=== PATIENT | female | born 1955 | race African-American/Black ===

== ENCOUNTER → 2017-07-13 | Outpatient (CLI) | payer BC, OTHER ==
--- NOTE | 2017-07-13 16:58 | WOMENS IMAGING REPORT ---
EXAM DESCRIPTION: 3D SCREENING MAMMO BILAT COMPLETED DATE/TIME: 07/13/2017 9:09 am REASON FOR STUDY: ROUTINE SCREENING; Z12.31 Z12.31 ENCNTR SCREEN MAMMOGRAM FOR MALIGNANT NEOPLASM O F LEXY COMPARISON: 2015 TECHNIQUE: Standard craniocaudal and mediolateral oblique views of each breast recorded using digita l acquisition and breast tomosynthesis. LIMITATIONS: None. FINDINGS: No masses, calcifications or architectural distortion. No areas of suspicion. Read with the assistance of CAD. .[facility] - R2 Cenova Version 1.3 .[facility] Imaging - R2 Cenova Version 1.3 .[facility] Imaging - R2 Cenova Version 2.4 .[facility] [place] Cenova Version 2.4 .[facility] - R2 [employer] Machine Operator Version 9.2 IMPRESSION: NORMAL MAMMOGRAM. BIRADS 1. BREAST DENSITY: b. There are scattered areas of fibroglandular density. BIRAD: 1 NEGATIVE RECOMMENDATION: ROUTINE SCREENING COMMENT: The patient has been notified of the results by letter per MQSA requirements. Additional no tification policies are in place for contacting patient with suspicious or incomplete findings. Quality ID #[id number]: The [employer] recommends an annual screening mammogram for women aged 40 years or over. This facility utilizes a reminder system to ensure that all patients receive reminder letters, and/or direct phone calls for appointments. This includes reminders for routine scr eening mammograms, diagnostic mammograms, or other Breast Imaging Interventions when appropriate. Th is patient will be placed in the appropriate reminder system. The [employer] (ACR) has developed recommendations for screening MRI of the breast s in certain patient populations, to be used in conjunction with mammography. Breast MRI surveillanc e may be appropriate for women with more than 20% lifetime risk of developing breast cancer as deter mined by genetic testing, significant family history of the disease, or history of mantle radiation f or Hodgkins Disease. ACR Practice Guidelines 2008. DBT Technology DBT is a type of tomographic mammography. With conventional mammography, overlapping breast tissue ma y make lesions difficult to detect, even with good compression. DBT uses an x-ray tube that rotates a round the breast, taking images at different angles. These images are then combined to create thin sl ices of the breast that the radiologist can view as a 3D reconstruction. The [employer] unit can perform full-field digital mammograms (2D imaging); or DBT (3D imaging); or both, in a combination mode that quickly performs both the mammogram and the tomosynthesis scan while the breast is still compressed. PQRS 6045F: Fluoroscopic imaging is not utilized for breast tomosynthesis. TECHNICAL DOCUMENTATION: FINDING NUMBER: (1) ASSESSMENT: (1) JOB ID: [id number] [employer]- All Rights Reserved
== END ==
LOC: WI 08:12
PROVIDERS: ATTEND Internal Medicine Geriatric Medicine
DX: Z12.31 Encounter for screening mammogram for malignant neoplasm of breast (principal)
CPT/HCPCS: 77063; G0202; 77067

== ENCOUNTER 2017-07-18 13:15 | Inpatient (IN) | payer BC, OTHER ==
[2017-07-18] MEDS ORDERED: ASPIRIN 81 MG TABLET, CHEWABLE PO ONE (13:36)
--- NOTE | 2017-07-18 13:38 | ER Document Report ---
ED Medical Screen (RME) - General Chief Complaint: Chest Pain Stated Complaint: CHEST PAIN Time Seen by Provider: 07/18/17 13:35 Notes: Patient is a 62-year-old female who says that she was driving her car when she suddenly had anterior chest pain like cramping and pressure. It happened about 30 minutes prior to arrival here. The pain went up into her left jaw. She had some difficulty breathing with the pain. Then, as she arrived here, the pain subsided and is no longer present. Patient has had this problem several times in the past, just not quite as severe. She was seen by a wrap checker about a year ago and told that she may have some fluid around her heart. No nausea or vomiting. Did not develop any sweats. Did feel hot. At this time, again, patient says that she feels fine. Patient just started on a new cholesterol pill about 3 days ago. Also takes medicines for hypertension. TRAVEL OUTSIDE OF THE [place] IN LAST 30 DAYS: No - Related Data Allergies/Adverse Reactions: codeine [Codeine] Allergy (Verified 06/06/15 18:36) nifedipine [From Procardia] Allergy (Verified 06/06/15 18:36) Past Medical History - Social History Chew tobacco use (# tins/day): No Frequency of alcohol use: None Drug Abuse: None - Past Medical History Cardiac Medical History: Reports: Hx Hypertension Renal/ Medical History: Denies: Hx Peritoneal Dialysis Past Surgical History: Reports: Hx Abdominal Surgery - stomach bypass, Hx Gynecologic Surgery - hysterectomy - Immunizations Hx Diphtheria, Pertussis, Tetanus Vaccination: Yes Physical Exam - Vital signs Vitals: Temp Pulse Resp BP Pulse Ox 97.7 F 66 16 139/72 H 98 07/18/17 13:27 07/18/17 13:27 07/18/17 13:27 07/18/17 13:27 07/18/17 13:27 Course - Vital Signs Vital signs: Temp Pulse Resp BP Pulse Ox 97.7 F 66 16 139/72 H 98 07/18/17 13:27 07/18/17 13:27 07/18/17 13:27 07/18/17 13:27 07/18/17 13:27
[2017-07-18 14:04] LABS: ABSOLUTE EOSINOPHILS # (AUTO) 0.1 10^3/uL (0.0-0.6); ABSOLUTE LYMPHOCYTES (AUTO) 1.4 10^3/uL (0.5-4.7); ABSOLUTE MONOCYTES (AUTO) 0.4 10^3/uL (0.1-1.4); ABSOLUTE NEUT (AUTO) 2.9 10^3/uL (1.7-8.2); BASOPHILS % (AUTO) 0.7 % (0-2); EOSINOPHILS % (AUTO) 1.8 % (0-6); HEMATOCRIT 41.3 % (36.0-47.0); HEMOGLOBIN 13.9 g/dL (12.0-15.5); LYMPHOCYTES % (AUTO) 28.7 % (13-45); MEAN CORPUSCULAR HEMOGLOBIN 28.1 pg (27.0-33.4); MEAN CORPUSCULAR HGB CONC 33.7 g/dL (32.0-36.0); MEAN CORPUSCULAR VOLUME 84 fl (80-97); MONOCYTES % (AUTO) 8.5 % (3-13); PLATELET COUNT 235 10^3/uL (150-450); RED BLOOD COUNT 4.94 10^6/uL (3.72-5.28); RED CELL DISTRIBUTION WIDTH 14.3 % (11.5-14.0); SEGMENTED NEUTROPHILS % (AUTO) 60.3 % (42-78); TOTAL CELLS COUNTED % (AUTO) 100 %; WHITE BLOOD COUNT 4.8 10^3/uL (4.0-10.5)
--- NOTE | 2017-07-18 14:04 | RADIOLOGY REPORT (SQ) ---
EXAM DESCRIPTION: CHEST PA/LAT COMPLETED DATE/TIME: 07/18/2017 1:55 pm REASON FOR STUDY: Anterior chest pain COMPARISON: 04/14/2015 EXAM PARAMETERS: NUMBER OF VIEWS: two views TECHNIQUE: Digital Frontal and Lateral radiographic views of the chest acquired. RADIATION DOSE: NA LIMITATIONS: none FINDINGS: LUNGS AND PLEURA: No opacities, masses or pneumothorax. No pleural effusion. MEDIASTINUM AND HILAR STRUCTURES: No masses or contour abnormalities. HEART AND VASCULAR STRUCTURES: Heart stable in size. No evidence for failure. BONES: No acute findings. HARDWARE: None in the chest. OTHER: No other significant finding. IMPRESSION: NO ACUTE CARDIOPULMONARY PROCESS. NO SIGNIFICANT CHANGE FROM PRIOR STUDY. TECHNICAL DOCUMENTATION: JOB ID: [id number] [employer]- All Rights Reserved
[2017-07-18 14:15] LABS: ALANINE AMINOTRANSFERASE 45 U/L (9-52); ALBUMIN 4.1 g/dL (3.5-5.0); ALKALINE PHOSPHATASE 157 U/L (38-126); ANION GAP 12 (5-19); ASPARTATE AMINO TRANSFERASE 31 U/L (14-36); BILIRUBIN,DIRECT 0.2 mg/dL (0.0-0.4); BILIRUBIN,TOTAL 0.4 mg/dL (0.2-1.3); BLOOD UREA NITROGEN 15 mg/dL (7-20); CALCIUM 9.9 mg/dL (8.4-10.2); CARBON DIOXIDE 25 mmol/L (22-30); CHLORIDE 107 mmol/L (98-107); CREATINE KINASE 75 U/L (30-135); GLUCOSE 89 mg/dL (75-110); LIPASE 146.8 U/L (23-300); POTASSIUM 3.9 mmol/L (3.6-5.0); SODIUM 143.6 mmol/L (137-145); TOTAL PROTEIN 7.2 g/dL (6.3-8.2)
[2017-07-18 14:26] LABS: CREATINE KINASE MB 0.89 ng/mL (<4.55)
[2017-07-18 14:27] LABS: TROPONIN I < 0.012 ng/mL
--- NOTE | 2017-07-18 15:09 | ER Document Report ---
ED General - General Chief Complaint: Chest Pain Stated Complaint: CHEST PAIN Time Seen by Provider: 07/18/17 13:35 Mode of Arrival: Ambulatory Information source: Patient Notes: 62-year-old female history of hypertension hyperlipidemia who presents with complaints of chest pain radiating to the left neck just prior to arrival. Patient notes the pain was a pressure sensation lasting approximately 5 minutes. Patient's pain resolved upon arrival to the emergency department. Patient notes similar episode in the past, she does note that she has had a stress test last year which was within normal limits but an echo that showed pericardial effusion. Patient has she was followed with cardiology and no intervention was necessary. TRAVEL OUTSIDE OF THE [place] IN LAST 30 DAYS: No - HPI Onset: Just prior to arrival Onset/Duration: Sudden, Gone Quality of pain: Pressure Severity: Mild Pain Level: 1 Associated symptoms: Chest pain Exacerbated by: Denies Relieved by: Denies Similar symptoms previously: Yes Recently seen / treated by doctor: Yes - Related Data Allergies/Adverse Reactions: codeine [Codeine] Allergy (Verified 06/06/15 18:36) nifedipine [From Procardia] Allergy (Verified 06/06/15 18:36) Home Medications: Current Home Medications Amlodipine Besylate [Norvasc 10 mg Tablet] 10 mg PO DAILY 07/18/17 [History] Cyclobenzaprine HCl [Flexeril 10 mg Tablet] 10 mg PO PRN PRN 07/18/17 [History] Rosuvastatin Calcium [Crestor] 10 mg PO DAILY 07/18/17 [History] Spironolactone [Aldactone 25 mg Tablet] 25 mg PO DAILY 07/18/17 [History] Past Medical History - Social History Smoking Status: Never Smoker Cigarette use (# per day): No Chew tobacco use (# tins/day): No Smoking Education Provided: No Frequency of alcohol use: None Drug Abuse: None Family History: Reviewed & Not Pertinent Patient has suicidal ideation: No Patient has homicidal ideation: No - Past Medical History Cardiac Medical History: Reports: Hx Hypercholesterolemia, Hx Hypertension Renal/ Medical History: Denies: Hx Peritoneal Dialysis Past Surgical History: Reports: Hx Abdominal Surgery - gastric bypass, Hx Gynecologic Surgery - hysterectomy, Hx Hysterectomy - Immunizations Hx Diphtheria, Pertussis, Tetanus Vaccination: Yes Review of Systems - Review of Systems Notes: REVIEW OF SYSTEMS: CONSTITUTIONAL : Denies fever, chills, or sweats. Denies recent illness. EENT: Denies eye, ear, throat, or mouth pain or symptoms. Denies nasal or sinus congestion or discharge. Denies throat, tongue, or mouth swelling or difficulty swallowing. CARDIOVASCULAR: Admits chest pain RESPIRATORY: Denies cough, cold, or chest congestion. Denies shortness of breath, difficulty breathing, or wheezing. GASTROINTESTINAL: Denies abdominal pain or distention. Denies nausea, vomiting , or diarrhea. Denies blood in vomitus, stools, or per rectum. Denies black, tarry stools. Denies constipation. GENITOURINARY: Denies difficulty urinating, painful urination, burning, frequency, blood in urine, or discharge. FEMALE GENITOURINARY: Denies vaginal bleeding, heavy or abnormal periods, irregular periods. Denies vaginal discharge or odor. MUSCULOSKELETAL: Denies back or neck pain or stiffness. Denies joint pain or swelling. SKIN: Denies rash, lesions or sores. HEMATOLOGIC : Denies easy bruising or bleeding. LYMPHATIC: Denies swollen, enlarged glands. NEUROLOGICAL: Denies confusion or altered mental status. Denies passing out or loss of consciousness. Denies dizziness or lightheadedness. Denies headache. Denies weakness or paralysis or loss of use of either side. Denies problems with gait or speech. Denies sensory loss, numbness, or tingling. Denies seizures. PSYCHIATRIC: Denies anxiety or stress. Denies depression, suicidal ideation, or homicidal ideation. ALL OTHER SYSTEMS REVIEWED AND NEGATIVE. PHYSICAL EXAMINATION: GENERAL: Well-appearing, well-nourished and in no acute distress. HEAD: Atraumatic, normocephalic. EYES: Pupils equal round and reactive to light, extraocular movements intact, conjunctiva are normal. ENT: Nares patent, oropharynx clear without exudates. Moist mucous membranes. NECK: Normal range of motion, supple without lymphadenopathy LUNGS: Breath sounds clear to auscultation bilaterally and equal. No wheezes rales or rhonchi. HEART: Regular rate and rhythm without murmurs ABDOMEN: Soft, nontender, nondistended abdomen. No guarding, no rebound. No masses appreciated. Female : deferred Musculoskeletal: Normal range of motion, no pitting or edema. No cyanosis. NEUROLOGICAL: Cranial nerves grossly intact. Normal speech, normal gait. Normal sensory, motor exams PSYCH: Normal mood, normal affect. SKIN: Warm, Dry, normal turgor, no rashes or lesions noted. Dictation was performed using [employer] voice recognition software Physical Exam - Vital signs Vitals: Temp Pulse Resp BP Pulse Ox 97.7 F 66 16 139/72 H 98 07/18/17 13:27 07/18/17 13:27 07/18/17 13:27 07/18/17 13:27 07/18/17 13:27 Course - Re-evaluation Re-evalutation: 07/18/17 15:52 Patient's presentation is consistent with acute cardiac issue given her complaints and extensive medical history. Given that she is chest pain-free cardiac enzymes are negative and EKG appears normal I do believe she is stable to be ruled out in the hospital. Patient will be given aspirin - Vital Signs Vital signs: Temp Pulse Resp BP Pulse Ox 97.7 F 66 20 144/81 H 100 07/18/17 13:27 07/18/17 14:00 07/18/17 14:16 07/18/17 14:16 07/18/17 14:16 - Laboratory Result Diagrams: 07/18/17 13:45 07/18/17 13:45 Laboratory results interpreted by me: 07/18/17 07/18/17 13:45 13:45 RDW 14.3 H Alkaline Phosphatase 157 H - Diagnostic Test Radiology reviewed: Image reviewed, Reports reviewed - EKG Interpretation by Al EKG shows normal: Sinus rhythm, Johnson, Intervals, QRS Complexes Discharge - Discharge Clinical Impression: Chest pain Qualifiers: Chest pain type: unspecified Qualified Code(s): R07.9 - Chest pain, unspecified HTN (hypertension) Qualifiers: Hypertension type: essential hypertension Qualified Code(s): I10 - Essential ( primary) hypertension Hyperlipemia Qualifiers: Hyperlipidemia type: unspecified Qualified Code(s): E78.5 - Hyperlipidemia, unspecified Condition: Stable Disposition: ADMITTED OBSERVATION Admitting Provider: Rachel Unit Admitted: Telemetry
--- NOTE | 2017-07-18 18:12 | EKG REPORT ---
SEVERITY:- BORDERLINE ECG - SINUS RHYTHM PROBABLE LEFT ATRIAL ABNORMALITY BORDERLINE T ABNORMALITIES, INFERIOR LEADS : Confirmed by: Rafi Waters MD 18-Jul-2017 18:12:26
[2017-07-18 19:50] LABS: CREATINE KINASE MB 0.66 ng/mL (<4.55)
[2017-07-18 20:02] LABS: TROPONIN I < 0.012 ng/mL
[2017-07-19 02:04] LABS: CREATINE KINASE MB 0.53 ng/mL (<4.55)
[2017-07-19 02:08] LABS: TROPONIN I < 0.012 ng/mL
[2017-07-19 10:12] LABS: CREATINE KINASE MB 0.73 ng/mL (<4.55)
[2017-07-19 10:13] LABS: TROPONIN I < 0.012 ng/mL
[2017-07-19] MEDS ORDERED: CYCLOBENZAPRINE HCL 10 MG TABLET PO PRN (11:55)
[2017-07-19 12:05] VITALS: BP 110/55
--- NOTE | 2017-07-19 12:19 | PDOC H&P ---
History of Present Illness Admission Date/PCP: 07/18/17 15:43 NORMA JAMILA History of Present Illness: DENIZ DE JESUS is a 62 year old female, she came to the emergency room for evaluation of chest pain, the chest pain is atypical in character it was not provoked by activity and relieved by rest she had chest pain while she was driving her car, when she arrived to the emergency room there was no more chest pain sensation. In the emergency room she was evaluated, a 12-lead EKG was done , it was sinus rhythm, there is no acute ST segment changes. She had a Cardiolite stress test last year, it was negative for any acute ischemia. She was admitted for observation based on the recommendation of the ED physician. 3 sets of cardiac enzymes were negative for any acute myocardial infarction. She was observed for 23 hours, she had no chest pain throughout hospital stay. Past Medical History Cardiac Medical History: Reports: Hyperlipidema, Hypertension Past Surgical History Past Surgical History: Reports: Hysterectomy Social History Smoking Status: Never Smoker Cigarettes Packs Per Day: 0 Cigars Per Day: 0 Pipes Per Day: 0 Frequency of Alcohol Use: None Hx Recreational Drug Use: No Hx Prescription Drug Abuse: No - Advance Directive Resuscitation Status: Full Code Family History Family History: Reviewed & Not Pertinent Parental Family History Reviewed: Yes Children Family History Reviewed: Yes Sibling(s) Family History Reviewed.: Yes Medication/Allergy Home Medications: RX: Amlodipine Besylate [Norvasc 10 mg Tablet] 10 mg PO DAILY 07/18/17 RX: Cyclobenzaprine HCl [Flexeril 10 mg Tablet] 10 mg PO PRN PRN 07/18/17 RX: Rosuvastatin Calcium [Crestor] 10 mg PO DAILY 07/18/17 RX: Spironolactone [Aldactone 25 mg Tablet] 25 mg PO DAILY 07/18/17 RX: Aspirin 81 mg PO DAILY #90 07/19/17 Allergies/Adverse Reactions: codeine [Codeine] Allergy (Verified 07/18/17 17:10) nifedipine [From Procardia] Allergy (Verified 07/18/17 17:10) Review of Systems Constitutional: ABSENT: chills, fever(s), headache(s), weight gain, weight loss Eyes: ABSENT: visual disturbances Ears: ABSENT: hearing changes Cardiovascular: PRESENT: chest pain Respiratory: ABSENT: cough, hemoptysis Gastrointestinal: ABSENT: abdominal pain, constipation, diarrhea, hematemesis, hematochezia, nausea, vomiting Genitourinary: ABSENT: dysuria, hematuria Musculoskeletal: ABSENT: joint swelling Integumentary: ABSENT: rash, wounds Neurological: ABSENT: abnormal gait, abnormal speech, confusion, dizziness, focal weakness, syncope Psychiatric: ABSENT: anxiety, depression, homidical ideation, suicidal ideation Endocrine: ABSENT: cold intolerance, heat intolerance, menstrual abnormalities, polydipsia, polyuria Hematologic/Lymphatic: ABSENT: easy bleeding, easy bruising, lymphadenopathy Physical Exam Vital Signs: Temp Pulse Resp BP Pulse Ox 98.4 F 65 18 110/55 L 96 07/19/17 11:50 07/19/17 11:50 07/19/17 11:50 07/19/17 11:50 07/19/17 11:50 Intake & Output 07/18/17 07/19/17 07/20/17 06:59 06:59 06:59 Intake Total 610 Balance 610 Weight 93.5 kg General appearance: PRESENT: no acute distress, well-developed, well-nourished Head exam: PRESENT: atraumatic, normocephalic Eye exam: PRESENT: conjunctiva pink, EOMI, PERRLA Ear exam: PRESENT: normal external ear exam Mouth exam: PRESENT: moist, tongue midline Neck exam: PRESENT: full ROM Respiratory exam: PRESENT: clear to auscultation janene Cardiovascular exam: PRESENT: RRR, +S1, +S2 Pulses: PRESENT: normal dorsalis pedis pul, +2 pedal pulses bilateral Vascular exam: PRESENT: normal capillary refill GI/Abdominal exam: PRESENT: normal bowel sounds, soft Rectal exam: PRESENT: deferred Neurological exam: PRESENT: alert, awake, oriented to person, oriented to place , oriented to time, oriented to situation, CN II-XII grossly intact Psychiatric exam: PRESENT: appropriate affect, normal mood Skin exam: PRESENT: dry, intact, warm Results Laboratory Results: 07/18/17 07/18/17 07/19/17 18:18 18:18 01:19 Creatine Kinase 72 61 CK-MB (CK-2) 0.66 Troponin I < 0.012 07/19/17 07/19/17 07/19/17 01:19 09:34 09:34 Creatine Kinase 68 CK-MB (CK-2) 0.53 0.73 Troponin I < 0.012 < 0.012 Impressions: Chest X-Ray 07/18/17 13:36 IMPRESSION: NO ACUTE CARDIOPULMONARY PROCESS. NO SIGNIFICANT CHANGE FROM PRIOR STUDY. Assessment & Plan - Diagnosis (1) Chest pain Qualifiers: Chest pain type: unspecified Qualified Code(s): R07.9 - Chest pain, unspecified Is this a current diagnosis for this admission?: Yes Plan: She is admitted for observation to rule out acute myocardial acute infarction, though unlikely in this patient (2) HTN (hypertension) Qualifiers: Hypertension type: essential hypertension Qualified Code(s): I10 - Essential (primary) hypertension Is this a current diagnosis for this admission?: Yes (3) Hyperlipemia Qualifiers: Hyperlipidemia type: unspecified Qualified Code(s): E78.5 - Hyperlipidemia , unspecified Is this a current diagnosis for this admission?: Yes
[2017-07-19] MEDS ORDERED: SPIRONOLACTONE 25 MG TABLET PO ONE ×2 (12:30→13:00)
[2017-07-19] MEDS ORDERED: ATORVASTATIN CALCIUM 20 MG TABLET PO SCH (22:00)
[2017-07-20] MEDS ORDERED: AMLODIPINE BESYLATE 10 MG TABLET PO SCH (10:00)
[2017-07-20] MEDS ORDERED: SPIRONOLACTONE 25 MG TABLET PO SCH (10:00)
== END 2017-07-19 13:10 | disposition home or self-care (01) | DRG 313 ==
LOC: ER 13:15 → OBSVTOIN 15:43 → EH 15:43 → 4S 16:25
PROVIDERS: ADMIT Internal Medicine Geriatric Medicine; ATTEND Internal Medicine Geriatric Medicine
DX: R07.89 Other chest pain (principal); I10 Essential (primary) hypertension; E78.5 Hyperlipidemia, unspecified; R06.00 Dyspnea, unspecified; Z79.899 Other long term (current) drug therapy; Z98.84 Bariatric surgery status; Z90.710 Acquired absence of both cervix and uterus; Z88.6 Allergy status to analgesic agent; Z79.82 Long term (current) use of aspirin; Z88.8 Allergy status to other drugs, medicaments and biological substances
CPT/HCPCS: 36415; 71020; 80053; 82550; 82553; 83690; 84484; 85025; 93005; 93010; 99285; G0378

== ENCOUNTER → 2017-11-12 | Outpatient (CLI) | payer BC, OTHER ==
--- NOTE | 2017-11-12 19:41 | XCELERA REPORT ---
[address] [address] Transthoracic Echocardiogram Report Name: DENIZ DE JESUS Age: 62 yrs Gender: Female : 1955 Patient Status: Outpatient Patient Location: Study Date: 11/12/2017 01:18 PM Height: 63 in Weight: 200 lb BSA: 1.9 m2 Procedure: A complete two-dimensional transthoracic echocardiogram was performed (2D, M-mode, spectral and color flow Doppler). The study was technically adequate with some images being suboptimal in quality. Reason For Study: CARDIOMEGALY Ordering Physician: NORMA MARINO Performed By: Dagoberto Payne Interpretation Summary The left ventricular ejection fraction is normal. There is mild concentric left ventricular hypertrophy. The left ventricle is grossly normal size. Doppler measurements suggest pseudonormalized left ventricular relaxation, which is associated with grade II/IV or mild to moderate diastolic dysfunction Wall motion cannot be accurately commented on, but no definite regional wall motion abnormalities noted. The right ventricular systolic function is normal. The left atrial size is normal. The right atrium is normal. There is a trace amount of mitral regurgitation There is no mitral valve stenosis. No aortic regurgitation is present. There is no aortic valve stenosis There is a trace or physiologic amount of tricuspid regurgitation Tricuspid regurgitation jet envelope not well defined to measure RV systolic pressure accurately. The aortic root is not well visualized but is probably normal size. The inferior vena cava appeared normal and decreased > 50% with respiration (RAP 5-10 mmHg) Small pericardial effusion. There are no echocardiographic or Doppler indications for cardiac tamponade MMode/2D Measurements & Calculations RVDd: 3.3 cm LVIDd: 3.1 cm FS: 44.8 % Ao root diam: 2.3 cm IVSd: 1.3 cm LVIDs: 1.7 cm EDV(Teich): 39.0 ml LVPWd: 1.2 cm ESV(Teich): 8.8 ml Ao root area: 4.2 cm2 EF(Teich): 77.4 % LA dimension: 3.6 cm Doppler Measurements & Calculations MV E max jenifer: MV P1/2t max jenifer: Ao V2 max: LV V1 max P.1 cm/sec 73.1 cm/sec 169.4 cm/sec 4.9 mmHg MV A max jenifer: MV P1/2t: 81.5 msec Ao max PG: LV V1 max: 121.9 cm/sec 11.5 mmHg 110.6 cm/sec MV E/A: 0.58 MVA(P1/2t): 2.7 cm2 MV dec slope: 262.4 cm/sec2 PA V2 max: TR max jenifer: 85.4 cm/sec 247.0 cm/sec PA max P.9 mmHgTR max P.4 mmHg Left Ventricle The left ventricle is grossly normal size. There is mild concentric left ventricular hypertrophy. The left ventricular ejection fraction is normal. Doppler measurements suggest pseudonormalized left ventricular relaxation, which is associated with grade II/IV or mild to moderate diastolic dysfunction. Wall motion cannot be accurately commented on, but no definite regional wall motion abnormalities noted. Right Ventricle The right ventricle is grossly normal size. There is normal right ventricular wall thickness. The right ventricular systolic function is normal. Atria The right atrium is normal. The left atrial size is normal. Interarterial septum not well visualized and not well dopplered. Cannot comment on ASD/PFO presence. Mitral Valve The mitral valve is grossly normal. There is no mitral valve stenosis. There is a trace amount of mitral regurgitation. Aortic Valve The aortic valve is not well visualized secondary to technical limitations. There is no aortic valve stenosis. No aortic regurgitation is present. Tricuspid Valve The tricuspid valve is not well visualized secondary to technical limitations. There is no tricuspid stenosis. There is a trace or physiologic amount of tricuspid regurgitation. Tricuspid regurgitation jet envelope not well defined to measure RV systolic pressure accurately. Pulmonic Valve The pulmonic valve is not well visualized. Great Vessels The aortic root is not well visualized but is probably normal size. The inferior vena cava appeared normal and decreased > 50% with respiration (RAP 5-10 mmHg). Effusions Small pericardial effusion. There are no echocardiographic or Doppler indications for cardiac tamponade. : NORMA MARINO > Ying Carter
== END ==
LOC: SP 12:40
PROVIDERS: ATTEND Internal Medicine Geriatric Medicine
DX: I51.7 Cardiomegaly (principal)
CPT/HCPCS: 93306

== ENCOUNTER 2018-03-25 20:26 | Emergency (ER) | payer BC, OTHER ==
--- NOTE | 2018-03-25 21:19 | ER Document Report ---
ED Medical Screen (RME) - General Chief Complaint: Headache Stated Complaint: HEADACHE Time Seen by Provider: 03/25/18 21:17 Mode of Arrival: Ambulatory Information source: Patient Notes: Patient is a 62-year-old female who presents with chief complaint of headache. Patient reports that she has been having a dull headaches since Thursday. Patient reports this morning she woke up with a severe headache. Patient went to her primary care provider's office and was prescribed Fioricet. Patient went home took the Fioricet and went to sleep and woke up with worsening pain. Patient reports the pain is located on the left side of her head, feels like a sharp stabbing burning pain and is intermittent. Patient denies any nausea, vomiting, light sensitivity or noise sensitivity. Patient does report that her blood pressures have been running high with systolic pressures in the 170s-190s over the last few weeks, she reports that her primary care provider is in the process of changing her on her blood pressure medications. Exam: Patient alert, oriented, calm and cooperative. 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 Normal motor and sensation to bilateral upper and lower extremities. I have greeted and performed a rapid initial assessment of this patient. A comprehensive ED assessment and evaluation of the patient, analysis of test results and completion of the medical decision making process will be conducted by additional ED providers. Dictation of this chart was performed using voice recognition software; therefore, there may be some unintended grammatical errors. TRAVEL OUTSIDE OF THE [place] IN LAST 30 DAYS: No - Related Data Allergies/Adverse Reactions: codeine [Codeine] Allergy (Verified 07/18/17 17:10) nifedipine [From Procardia] Allergy (Verified 07/18/17 17:10) Past Medical History - Past Medical History Cardiac Medical History: Reports: Hx Hypercholesterolemia, Hx Hypertension Renal/ Medical History: Denies: Hx Peritoneal Dialysis Past Surgical History: Reports: Hx Abdominal Surgery - gastric bypass, Hx Gynecologic Surgery - hysterectomy, Hx Hysterectomy - Immunizations Hx Diphtheria, Pertussis, Tetanus Vaccination: Yes History of Influenza Vaccine for 04/2017 - 09/2017 Season: Refused Physical Exam - Vital signs Vitals: Temp Pulse Resp BP Pulse Ox 98.7 F 71 18 177/78 H 97 03/25/18 20:32 03/25/18 20:32 03/25/18 20:32 03/25/18 20:32 03/25/18 20:32 Course - Vital Signs Vital signs: Temp Pulse Resp BP Pulse Ox 98.7 F 71 18 177/78 H 97 03/25/18 20:32 03/25/18 20:36 03/25/18 20:36 03/25/18 20:36 03/25/18 20:36 Doctor's Discharge - Discharge Referrals: NORMA MARINO MD [Primary Care Provider] - Follow up as needed
--- NOTE | 2018-03-25 21:59 | RADIOLOGY REPORT (SQ) ---
EXAM DESCRIPTION: CT HEAD WITHOUT COMPLETED DATE/TIME: 03/25/2018 9:50 pm REASON FOR STUDY: worsening headache COMPARISON: None. TECHNIQUE: Axial images acquired through the brain without intravenous contrast. Images reviewed wi th bone, brain and subdural windows. Additional sagittal and coronal reconstructions were generated. Images stored on PACS. All CT scanners at this facility use dose modulation, iterative reconstruction, and/or weight based d osing when appropriate to reduce radiation dose to as low as reasonably achievable (ALARA). [facility]: Dose Right [facility]: CareDose [facility]: Dose Right [facility]: Teradose 4D [facility]: MediaPhy RADIATION DOSE: CT Rad equipment meets quality standard of care and radiation dose reduction techniq ues were employed. CTDIvol: 53.2 mGy. DLP: 911 mGy-cm. mGy. LIMITATIONS: None. FINDINGS: VENTRICLES: Normal size and contour. CEREBRUM: No masses. No hemorrhage. No midline shift. No evidence for acute infarction. Normal gra y/white matter differentiation. No areas of low density in the white matter. CEREBELLUM: No masses. No hemorrhage. No alteration of density. No evidence for acute infarction. EXTRAAXIAL SPACES: No fluid collections. No masses. ORBITS AND GLOBE: No intra- or extraconal masses. Normal contour of globe without masses. CALVARIUM: No fracture. PARANASAL SINUSES: No fluid or mucosal thickening. SOFT TISSUES: No mass or hematoma. OTHER: No other significant finding. IMPRESSION: NORMAL BRAIN CT WITHOUT CONTRAST. EVIDENCE OF ACUTE STROKE: NO. COMMENT: Quality ID # [id number]: Final reports with documentation of one or more dose reduction techniques (e.g., Automated exposure control, adjustment of the mA and/or kV according to patient size, use of iterative reconstruction technique) TECHNICAL DOCUMENTATION: JOB ID: [id number] [email or web address]- All Rights Reserved Reading location - IP/workstation name: [email or web address]
[2018-03-25] MEDS ORDERED: DEXAMETHASONE SOD PHOS INJ 10 MG/1 ML VIAL IV ONE (23:55)
[2018-03-25] MEDS ORDERED: NORMAL SALINE 1000 ML 1,000 ML IV ONE (23:55)
[2018-03-25] MEDS ORDERED: PROCHLORPERAZINE EDISYLATE INJ 10 MG/2 ML VIAL IV ONE (23:55)
[2018-03-25] MEDS ORDERED: KETOROLAC TROMETHAMINE INJ/PF 30 MG/1 ML SDV IV ONE (23:55)
--- NOTE | 2018-03-26 00:40 | ER Document Report ---
ED General - General Chief Complaint: Headache Stated Complaint: HEADACHE Time Seen by Provider: 03/25/18 21:17 Mode of Arrival: Ambulatory Notes: She is a 62-year-old female with a past medical history of essential hypertension, obesity, hyperlipidemia who presents with a headache. Patient describes this as a stabbing, throbbing pain to the left temporal aspect of her scalp and one specific spot approximately the diameter of her fingertip. She states that this area becomes exquisitely painful, the pain lasts for approximately 10 seconds and then goes away completely without any residual pain. She states that the pain was present when she woke up from sleep today. She notes that it persisted throughout the day gradually worsening until she went to go see her doctor around 1 PM. She states that he prescribed Fioricet which she took but it did not provide significant relief prompting her to come to the emergency department. She has at this point she has no symptoms. She states that when the pain comes it is a very severe, stabbing pain to the affected area but then completely dissipates. Nothing seems to trigger the pain and it does resolve on its own. She denies any focal weakness, numbness, nausea, diaphoresis, visual symptoms, eye pain, chest pain or shortness of breath. She denies any history of similar symptoms in the past. Denies any trauma to the area. TRAVEL OUTSIDE OF THE [place] IN LAST 30 DAYS: No - Related Data Allergies/Adverse Reactions: codeine [Codeine] Allergy (Verified 07/18/17 17:10) nifedipine [From Procardia] Allergy (Verified 07/18/17 17:10) Past Medical History - General Information source: Patient - Social History Smoking Status: Never Smoker Frequency of alcohol use: None Drug Abuse: None Lives with: Spouse/Significant other Family History: Reviewed & Not Pertinent Patient has suicidal ideation: No Patient has homicidal ideation: No - Past Medical History Cardiac Medical History: Reports: Hx Hypercholesterolemia, Hx Hypertension Renal/ Medical History: Denies: Hx Peritoneal Dialysis Past Surgical History: Reports: Hx Abdominal Surgery - gastric bypass, Hx Gynecologic Surgery - hysterectomy, Hx Hysterectomy - Immunizations Hx Diphtheria, Pertussis, Tetanus Vaccination: Yes Review of Systems - Review of Systems Notes: Constitutional: Negative for fever. HENT: Negative for sore throat. Eyes: Negative for visual changes. Cardiovascular: Negative for chest pain. Respiratory: Negative for shortness of breath. Gastrointestinal: Negative for abdominal pain, vomiting or diarrhea. Genitourinary: Negative for dysuria. Musculoskeletal: Negative for back pain. Skin: Negative for rash. Neurological: Positive for headache 10 point ROS negative except as marked above and in HPI. Physical Exam - Vital signs Vitals: Temp Pulse Resp BP Pulse Ox 98.7 F 71 18 177/78 H 97 03/25/18 20:32 03/25/18 20:32 03/25/18 20:32 03/25/18 20:32 03/25/18 20:32 Interpretation: Hypertensive Notes: PHYSICAL EXAMINATION: GENERAL: Well-appearing, well-nourished and in no acute distress. HEAD: Atraumatic, normocephalic. EYES: Pupils equal round and reactive to light, extraocular movements intact, sclera anicteric, conjunctiva are normal. ENT: nares patent, oropharynx clear without exudates. Moist mucous membranes. NECK: Normal range of motion, supple without lymphadenopathy LUNGS: Breath sounds clear to auscultation bilaterally and equal. No wheezes rales or rhonchi. HEART: Regular rate and rhythm without murmurs ABDOMEN: Soft, nontender, normoactive bowel sounds. No guarding, no rebound. No masses appreciated. EXTREMITIES: Normal range of motion, no pitting or edema. No cyanosis. NEUROLOGICAL: Face symmetric. Tongue protrudes midline. Extraocular motions intact. Pupils are 2 mm and equally reactive. Normal speech, normal gait. 5 out of 5 strength in both the distal and proximal upper and lower extremities bilaterally. Sensation is grossly intact throughout. Finger to nose testing normal. Pronator drift normal. PSYCH: Normal mood, normal affect. SKIN: Warm, Dry, normal turgor, no rashes or lesions noted. Course - Re-evaluation Re-evalutation: 03/26/18 00:35 Patient presents with an atypical headache, pulsing intermittent to a focal spot of her left temporal scalp but no findings to the area of the skull. The patient has no pain in between these brief episodes of what she describes as shocking, pulsating pain to the left temporal scalp. This is highly atypical in terms of headache characterization for any life-threatening pathology particularly subarachnoid hemorrhage, meningitis, encephalitis, acute stroke. CT the head unremarkable. The only diagnosis that would be dangerous in etiology that I can think of in this context to be temporal arteritis. Will send inflammatory markers and reassess. Otherwise I am uncertain of the exact etiology of this headache and have explained this to the patient. However based on her clinical characterization, normal neuro exam, reassuring history do not clinically suspect a subarachnoid hemorrhage, intracranial mass, or dural venous sinus thrombosis. 03/26/18 02:29 ESR is normal further lowering my suspicion for temporal arteritis. Patient no longer having any symptoms. I have emphasized diagnostic uncertainty with the patient and the need for a low threshold to return to the ED for any new or worsening symptoms. At this time will discharge with return precautions and follow-up recommendations. Verbal discharge instructions given a the bedside and opportunity for questions given. Medication warnings reviewed. Patient is in agreement with this plan and has verbalized understanding of return precautions and the need for primary care follow-up in the next 24-72 hours. - Vital Signs Vital signs: Temp Pulse Resp BP Pulse Ox 98.7 F 64 18 186/87 H 97 03/25/18 20:32 03/25/18 22:50 03/25/18 22:50 03/25/18 22:50 03/25/18 22:50 - Laboratory Result Diagrams: 03/26/18 00:57 03/26/18 02:02 Laboratory results interpreted by me: 03/26/18 03/26/18 00:57 02:02 RBC 5.37 H RDW 14.5 H Potassium 3.5 L Chloride 112 H - Diagnostic Test Radiology reviewed: Image reviewed, Reports reviewed Radiology results interpreted by me: 03/26/18 02:31 CT head: No masses or bleeds Discharge - Discharge Clinical Impression: Headache Qualifiers: Headache type: unspecified Headache chronicity pattern: acute headache Intractability: not intractable Qualified Code(s): R51 - Headache HTN (hypertension) Qualifiers: Hypertension type: unspecified Qualified Code(s): I10 - Essential (primary) hypertension Condition: Good Disposition: HOME, SELF-CARE Additional Instructions: You have been seen in the Emergency Department (ED) for a headache. Please use Tylenol (acetaminophen) or Motrin (ibuprofen) as needed for symptoms, but only as written on the box. As we have discussed, please follow up with your primary care doctor as soon as possible regarding today's ED visit and your headache symptoms. The exact cause of your symptoms today is uncertain, but your imaging and labs are otherwise normal. Call your doctor or return to the ED if you have a worsening headache, sudden and severe headache, confusion, slurred speech, facial droop, weakness or numbness in any arm or leg, extreme fatigue, or other symptoms that concern you. Referrals: NORMA MARINO MD [Primary Care Provider] - Follow up as needed
[2018-03-26 01:10] LABS: ABSOLUTE EOSINOPHILS # (AUTO) 0.1 10^3/uL (0.0-0.6); ABSOLUTE LYMPHOCYTES (AUTO) 1.8 10^3/uL (0.5-4.7); ABSOLUTE MONOCYTES (AUTO) 0.4 10^3/uL (0.1-1.4); ABSOLUTE NEUT (AUTO) 2.7 10^3/uL (1.7-8.2); EOSINOPHILS % (AUTO) 1.4 % (0-6); HEMATOCRIT 44.5 % (36.0-47.0); HEMOGLOBIN 14.7 g/dL (12.0-15.5); LYMPHOCYTES % (AUTO) 35.3 % (13-45); MEAN CORPUSCULAR HEMOGLOBIN 27.3 pg (27.0-33.4); MEAN CORPUSCULAR VOLUME 83 fl (80-97); PLATELET COUNT 230 10^3/uL (150-450); RED BLOOD COUNT 5.37 10^6/uL (3.72-5.28); RED CELL DISTRIBUTION WIDTH 14.5 % (11.5-14.0); SEGMENTED NEUTROPHILS % (AUTO) 54.3 % (42-78); TOTAL CELLS COUNTED % (AUTO) 100 %
[2018-03-26 01:45] LABS: ERYTHROCYTE SEDIMENTATION RATE 16 mm/hr (0-30)
[2018-03-26 02:29] LABS: ANION GAP 10 (5-19); BLOOD UREA NITROGEN 9 mg/dL (7-20); CALCIUM 9.2 mg/dL (8.4-10.2); CARBON DIOXIDE 22 mmol/L (22-30); CHLORIDE 112 mmol/L (98-107); GLUCOSE 101 mg/dL (75-110); POTASSIUM 3.5 mmol/L (3.6-5.0); SODIUM 143.8 mmol/L (137-145)
[2018-03-26 03:18] VITALS: BP 166/81
== END 2018-03-26 02:50 | disposition home or self-care (01) ==
LOC: ER 20:26
DX: R51 Headache (principal); I10 Essential (primary) hypertension; E66.9 Obesity, unspecified; Z68.35 Body mass index [BMI] 35.0-35.9, adult; Z88.5 Allergy status to narcotic agent; Z88.8 Allergy status to other drugs, medicaments and biological substances
CPT/HCPCS: 99284; 96361; 96374; 96375; 36415; 85025; 85652; 86140; 80048; 70450; J1885; J0780; J7030; J1100

== ENCOUNTER 2019-05-04 21:41 | Emergency (ER) | payer OTHER, MEDICARE, BC ==
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
[2019-05-05 04:33] VITALS: BP 155/82
== END 2019-05-05 04:33 | disposition home or self-care (01) ==
LOC: ER 21:41
DX: S39.012A Strain of muscle, fascia and tendon of lower back, initial encounter (principal); M54.9 Dorsalgia, unspecified; V87.7XXA Person injured in collision between other specified motor vehicles (traffic), initial encounter; I10 Essential (primary) hypertension
CPT/HCPCS: 72110; 99283

== ENCOUNTER → 2019-05-24 | Outpatient (CLI) | payer MEDICARE, BC, OTHER ==
--- NOTE | 2019-05-24 12:52 | WOMENS IMAGING REPORT ---
EXAM DESCRIPTION: 3D SCREENING MAMMO BILAT COMPLETED DATE/TIME: 05/24/2019 11:06 am REASON FOR STUDY: Z12.31 SCREENING MAMMO Z12.31 ENCNTR SCREEN MAMMOGRAM FOR MALIGNANT NEOPLASM OF B RE COMPARISON: 2015 to 2016 EXAM PARAMETERS: Views: Standard craniocaudal and mediolateral oblique views of each breast recorded using digital acquisition and breast tomosynthesis. Read with the assistance of CAD. .[facility] - [employer] Version 9.2 LIMITATIONS: None. FINDINGS: No suspicious masses, suspicious calcifications or architectural distortion. No areas of c oncern. IMPRESSION: NEGATIVE MAMMOGRAM. BIRADS 1. BREAST DENSITY: b. There are scattered areas of fibroglandular density. BIRAD: ASSESSMENT: 1 NEGATIVE RECOMMENDATION: ROUTINE SCREENING COMMENT: The patient has been notified of the results by letter per MQSA requirements. Additional no tification policies are in place for contacting patient with suspicious or incomplete findings. Quality ID #[id number]: The [employer] recommends an annual screening mammogram for women aged 40 years or over. This facility utilizes a reminder system to ensure that all patients receive reminder letters, and/or direct phone calls for appointments. This includes reminders for routine scr eening mammograms, diagnostic mammograms, or other Breast Imaging Interventions when appropriate. Th is patient will be placed in the appropriate reminder system. TECHNICAL DOCUMENTATION: FINDING NUMBER: (1) ASSESSMENT: (1) JOB ID: [id number] [employer]- All Rights Reserved Reading location - IP/workstation name: [email or web address]
== END ==
LOC: WI 10:45
PROVIDERS: ATTEND Internal Medicine Geriatric Medicine
DX: Z12.31 Encounter for screening mammogram for malignant neoplasm of breast (principal)
CPT/HCPCS: 77063; 77067